=== PATIENT | female | born 1950 | race Caucasian/White ===

== ENCOUNTER 2023-08-07 11:49 | Emergency (ER) | payer MEDICARE, SELFPAY ==
--- NOTE | ~2023-08-07 | XR_ITS ---
EXAMINATION: XR ANKLE, RIGHT CLINICAL INFORMATION: Pain. COMPARISON: None available. TECHNIQUE: AP, lateral, and mortise views of the right ankle. FINDINGS: Asymmetric soft tissue swelling in the lateral surface of the ankle. No fractures or subluxation. Mild multifocal degenerative arthrosis. XR/XR ankle RT min 3V IMPRESSION: 1. Asymmetric soft tissue swelling in the lateral surface of the ankle. 2. No acute fractures or malalignment.
[2023-08-07 11:58] VITALS: BP 166/68; PULSE 64; RESP 18; TEMP 36.9; O2SAT 97; BMI 24.4
--- NOTE | 2023-08-07 12:00 | ED_ITS ---
HPI - General Adult General Chief complaint: Extremity Injury, Lower Stated complaint: r foot inj at home Time Seen by Provider: 08/07/23 13:48 Source: patient, RN notes reviewed and old records reviewed Mode of arrival: ambulatory Limitations: no limitations History of Present Illness HPI narrative: 73-year-old female presents for evaluation of right ankle pain. She reports when she tried to get off the couch ?I did not plan my feet properly and when I stood up I rolled my ankle. ? She describes an inversion injury She reports that she is able to bear weight with some discomfort Related Data Allergies Allergy/AdvReac Type Severity Reaction Status Date / Time No Known Allergies Allergy Verified 08/07/23 12:04 Review of Systems Musculoskeletal: Musculoskeletal: Reports arthralgias, Reports joint swelling and Reports limited range of motion Physical Exam ED Vital Signs: Vital Signs - 24 hr 08/07/23 11:58 Temperature 98.4 F Pulse Rate 64 Respiratory Rate 18 Blood Pressure 166/68 H Pulse Oximetry 97 Oxygen Delivery Method Room Air BMI result Body Mass Index 24.4 Const General: healthy appearing, comfortable, no acute distress, alert and awake Nutritional Appearance: well nourished Orientation/consciousness: patient oriented x3 HENMT Head: Yes normocephalic and Yes atraumatic Resp Effort & Inspection: normal respiratory effort, able to speak in complete sentences and not labored Skin General skin exam: elasticity normal Neuro General: patient oriented x3 Cranial nerves: Yes Bilaterally intact EOM present Cognition (Neuro): normal cognition Extrem Other: Right lateral ankle soft tissue swelling. There is tenderness over the right lateral malleolus. There is some tenderness over the right talofibular ligament. Patient has full range of motion. Distal sensation and capillary refill intact Course Course Course Narrative: RME- 73 year old female presents for evaluation of right lateral ankle pain. She reports twisting her right ankle while trying to stand up off the couch. Plan for x-ray Medical Decision Making Medical Decision Making [facility] Narrative: 73-year-old female presents for evaluation of an ankle injury. X-rays negative for fracture. She declines crutches and reports that she is able to bear weight. Differential Diagnosis Differential Diagnoses: The differential diagnosis associated with the presentation includes Ankle sprain Ankle fracture Dislocation Contusion Independent Interpretation I performed an independent interpretation of an: Plain X-Ray (No obvious fracture of the right ankle) Radiology Impression Discussion of test interpretation with radiology: I have reviewed the radiologist's reading. (Asymmetric soft tissue swelling with no fracture) Discharge Plan Discharge Clinical Impression: Ankle sprain and strain Patient Disposition: Home, Self-Care Instructions: Ankle Sprain (ED) Additional Instructions: Your x-ray did not show any evidence of fracture. Use ibuprofen/Tylenol for pain. Ice the area every 4 hours for 10-15 minutes. Elevate the leg above your heart when resting
== END 2023-08-07 14:02 | disposition home or self-care (01) ==
LOC: HO.ED 13:55
PROVIDERS: Emergency Provider Emergency Medicine Emergency Medical Services; PCP Family Medicine
DX: S93.401A Sprain of unspecified ligament of right ankle, initial encounter (principal); S96.911A Strain of unspecified muscle and tendon at ankle and foot level, right foot, initial encounter; X50.1XXA Overexertion from prolonged static or awkward postures, initial encounter; Y93.9 Activity, unspecified; Y92.9 Unspecified place or not applicable; Y99.9 Unspecified external cause status
CPT/HCPCS: 73610; 99282; 99283